=== PATIENT | female | born 1950 | race Caucasian/White ===

== ENCOUNTER 2018-04-22 08:28 | Outpatient (CLI) | payer MEDICARE ==
--- NOTE | 2018-04-22 13:23 | CT ---
CT ABDOMEN AND PELVIS WITH IV CONTRAST: INDICATIONS: History of mid abdominal pain for five weeks with a history of a routine colonoscopy two weeks ago. The patient reportedly had mucus coming from the appendix. FINDINGS: The visualized appendix appears within normal limits, measuring approximately 5.7 mm in its greatest diameter. No lymphadenopathy is evident. There is an enlarging right lower lobe pulmonary nodule, now measuring 8 mm, where it previously nilda ured [address], dated 03/30/2016. There is a small hiatal hernia. There is fatty infiltration of the liver. The gallbladder is surgically absent. The spleen, pancreas, and adrenal glands are normal appearing. There is very slight prominence of the right renal calyceal system, with a normal appearing right u reter, which may reflect a mild UPJ obstruction. 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 No definite obstruction process is seen involving the renal collecting system. T he visualized bladder is unremarkable. No pathologically enlarged lymph nodes are evident. There ar e mild vascular calcifications involving the abdominal aorta. There is scattered degenerative and osteoarthritic change. There is diffuse osteopenia. IMPRESSION: 1. The appendix is normal appearing by CT. No definite mass or lymphadenopathy is seen within the r ight lower quadrant of the abdomen. 2. Enlarging right lower lobe pulmonary nodule, now measuring up to [address] thorax with intravenous contrast is recommended to evaluate for additional pulmonary nodules. 3. Small hiatal hernia. 4. Fatty liver. 5. 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 6. Other chronic findings as above. CODE LN CODE T POS: MICHELLE
== END 2018-04-22 08:29 | disposition home or self-care (01) ==
LOC: SCSCT 08:28
PROVIDERS: ATTEND Internal Medicine Gastroenterology
DX: K35.80 Unspecified acute appendicitis (principal); R91.1 Solitary pulmonary nodule; K44.9 Diaphragmatic hernia without obstruction or gangrene; K76.0 Fatty (change of) liver, not elsewhere classified; I70.0 Atherosclerosis of aorta; M19.90 Unspecified osteoarthritis, unspecified site; M85.80 Other specified disorders of bone density and structure, unspecified site; Z90.49 Acquired absence of other specified parts of digestive tract
CPT/HCPCS: 74177; 82565

== ENCOUNTER 2018-12-26 08:52 | Outpatient (CLI) | payer MEDICARE ==
[2018-12-26] MEDS ORDERED: Iopamidol 300 61% 100 ML VIAL FS ONE (09:00)
--- NOTE | 2018-12-26 10:12 | CT ---
CT CHEST WITH CONTRAST: Date: 12/26/2018 HISTORY: Pulmonary nodule noted on prior abdominal CT within the right lower lobe. TECHNIQUE: Axial CT imaging obtained at 5 mm intervals from the thoracic inlet through the upper abdo men with IV contrast. Coronal reformatted imaging obtained. FINDINGS: There is deformity of the left breast with extensive calcifications. Question prior surgery. No lymphadenopathy is seen. Upper abdomen demonstrates cholecystectomy clips. No pleural, pericardial, or mediastinal fluid. No pneumothorax. Linear calcification noted within left upper lobe on axial image 16. No discrete pulmonary parenchyma l mass lesion or nodule noted within the left upper or left lower lobe. There is a spiculated mass measuring 1.4 cm within the medial aspect of the right upper lobe, best se en on axial image 23 and coronal image 42. There is a tiny nodule in the inferior aspect of the right middle lobe measuring 3 mm on axial image 40. The nodule noted on prior imaging within the right lower lobe is again seen. It measures approximatel y 9 mm. It has irregular margins and is a nonspecific lesion. Review of the osseous structures demonstrates no worrisome lytic or blastic lesions. IMPRESSION: 1. 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 2. Nonspecific right lower lobe pulmonary nodule as detailed above. Recommend PET/CT for further assessment. CODE T Transcribed Date/Time: 12/26/2018 10:18 AM
== END 2018-12-26 08:53 | disposition home or self-care (01) ==
LOC: SCSCT 08:52
PROVIDERS: ATTEND Internal Medicine
DX: R91.1 Solitary pulmonary nodule (principal); R91.8 Other nonspecific abnormal finding of lung field
CPT/HCPCS: 71260; 82565; Q9967

== ENCOUNTER 2019-01-08 08:50 | Outpatient (CLI) | payer MEDICARE ==
--- NOTE | 2019-01-08 11:10 | PET ---
Nuclear medicine FDG PET/CT: (Positron emission tomography and computed tomography) DATE: 01/08/2019 HISTORY: 68-year-old female with solitary pulmonary nodule. COMPARISON: no prior PET TECHNIQUE: IV injection of F-18 fluorodeoxyglucose (FDG) dose: 10.3 mCi. PET scan and attenuation correction CT performed from skull base to proximal thighs. FINDINGS: SUV (standard uptake values) numbers given are maximum SUVs. QCLR used. The 14 mm spiculated nodule in the anterior segment of the right upper lobe described on the recent c hest CT report is not FDG-avid (SUV 2.2). The 9 mm pulmonary nodule at the medial base of the right lower lobe is also not FDG-avid (SUV 0.9). The approximately 1 mm nodule at the right middle lobe is too small for PET. No abnormally FDG-avid lesions are identified anywhere in the neck, chest, abdomen, pelvis, or skelet on. IMPRESSION: 1) negative PET scan. 2) the spiculated 14 mm right upper lobe pulmonary nodule is not FDG-avid. 3) recommend serial follow-up chest CTs, beginning in 4 months.
== END 2019-01-08 08:51 | disposition home or self-care (01) ==
LOC: PET 08:50
PROVIDERS: ATTEND Internal Medicine
DX: R91.1 Solitary pulmonary nodule (principal)
CPT/HCPCS: 78815; A9552

== ENCOUNTER 2019-07-16 09:46 | Outpatient (CLI) | payer MEDICARE ==
--- NOTE | 2019-07-16 11:32 | CT ---
CT CHEST PERFORMED WITH CONTRAST ENHANCEMENT: Date: 07/16/2019 HISTORY: Follow-up pulmonary nodules. History of left breast cancer and lumpectomy, and chemotherapy and radia tion. COMPARISON: 12/26/2018 study. FINDINGS: The lungs are clear of any infiltrative process. Area of calcification in the left upper lobe is stab le in appearance. Spiculated mass in the anterior segment of the right upper lobe in a paramediastinal location is agai n demonstrated, it measures 1.5 cm in AP dimension, not felt to be a significant change since the paulino or study. In addition, there is a small right lower lobe pulmonary nodule, axial image 47 that measur es in the 3-4 mm range, also stable. Tiny area of nodularity axial image 73 in the right middle lobe is also unchanged. The right lower lobe pulmonary nodule axial image 70 measures 8-9 mm, also not sig nificantly different than the prior exam. No significant mediastinal or hilar adenopathy. Postoperative changes of the left breast are seen. The visualized liver parenchyma shows no focal findings. Right and left adrenal glands are normal in size. IMPRESSION: Essentially stable appearance to the pulmonary nodules. Questionable subtle increase in size to the s piculated lesion which may be a millimeter or so increased in size, but the change could just be rela jose juan to slight differences in position. No new nodules identified. POS: TPC
[2019-07-16] MEDS ORDERED: Iopamidol-370 76% 500 ML 1 ML ONE (14:41)
== END 2019-07-16 09:47 | disposition home or self-care (01) ==
LOC: BICCT 09:46
PROVIDERS: ATTEND Internal Medicine
DX: R91.8 Other nonspecific abnormal finding of lung field (principal)
CPT/HCPCS: 71260; 82565; Q9967

== ENCOUNTER 2020-03-22 09:33 | Outpatient (CLI) | payer MEDICARE ==
--- NOTE | 2020-03-22 12:08 | CT ---
CT OF THE THORAX WITHOUT IV CONTRAST: Date: 03/22/2020 INDICATION: Follow-up pulmonary nodule. COMPARISON: Prior CT of the thorax dated 12/26/2018 and 06/28/2019. FINDINGS: The spiculated pulmonary nodule with surrounding subsegmental atelectasis is slightly larger, now arlen suring 17.9 x 12.6 x 13.1 mm, where on the most previous examination, the pulmonary nodule measured 1 5.2 x 12.6 x 13 mm. The right lower lobe pulmonary nodule seen on image 70 of series 2 is stable measuring 1.3 x 0.8 cm. A small sub-4.0 mm pulmonary nodule within the right lower lobe on image 47 of series 2 is stable ap pearing. Calcification of the left upper lobe is stable. No new pulmonary nodule is evident. No lymphadenopathy is evident. High density material is seen within the ducts of the left breast poss ibly related to prior ductography is stable appearing. Small hiatal hernia. Gallbladder is surgically absent. Adrenal glands are normal appearing. No suspic ious osteolytic or osteoblastic lesion identified. There is scattered degenerative and osteoarthritic change. IMPRESSION: 1. Enlarging spiculated pulmonary nodule of the right upper lobe suspicious for slow-growing maligna ncy. 2. Stable right lower lobe pulmonary nodules. POS: BH
== END 2020-03-22 09:34 | disposition home or self-care (01) ==
LOC: BICCT 09:33
PROVIDERS: ATTEND Internal Medicine
DX: R91.8 Other nonspecific abnormal finding of lung field (principal)
CPT/HCPCS: 71250

== ENCOUNTER 2020-10-18 08:10 | Outpatient (CLI) | payer MEDICARE | END 2020-10-18 08:11 | disposition home or self-care (01) | LOC: CT 08:10 | PROVIDERS: ATTEND Internal Medicine Critical Care Medicine | DX: R91.8 Other nonspecific abnormal finding of lung field (principal) | CPT/HCPCS: 71250 ==

== ENCOUNTER 2021-12-06 10:18 | Outpatient (CLI) | payer MEDICARE | END 2021-12-06 10:19 | disposition home or self-care (01) | LOC: CT 10:18 | PROVIDERS: ATTEND Internal Medicine Critical Care Medicine | DX: R91.8 Other nonspecific abnormal finding of lung field (principal); R92.0 Mammographic microcalcification found on diagnostic imaging of breast | CPT/HCPCS: 71250 ==

== ENCOUNTER 2022-01-05 11:00 | Outpatient (CLI) | payer MEDICARE | END 2022-01-05 11:01 | disposition home or self-care (01) | LOC: PET 11:00 | PROVIDERS: ATTEND Internal Medicine Critical Care Medicine | DX: R91.1 Solitary pulmonary nodule (principal) | CPT/HCPCS: 78815; A9552 ==

== ENCOUNTER 2022-02-23 11:30 | Inpatient (IN) | payer MEDICARE ==
[2022-02-23 11:32] LABS: Hemoglobin 15.5 g/dL (12.0-15.5); Mean Corpuscular HGB CONC 33.5 g/dL (32.0-36.0); Mean Corpuscular Hemoglobin 31.1 pg (27.0-33.0); Mean Corpuscular Volume 92.8 fl (81.6-98.3); Mean Platelet Volume 9.3 fl (7.4-10.4); Platelet Count 227 10x3/uL (150-450); Red Blood Cell (RBC) Count 4.99 10x6/uL (3.90-5.03); White Blood Cell (WBC) Count 5.7 10x3/uL (3.5-10.5)
[2022-02-23 11:44] LABS: Anion Gap 15 mmol/L (10-20); BUN (Urea Nitrogen) 10 mg/dL (9.8-20.1); Calc. Creatinine Clearance 0 mL/min (70-130); Calcium 9.6 mg/dL (7.8-10.44); Carbon Dioxide 28 mmol/L (23-31); Chloride 102 mmol/L (98-107); Estimated GFR 87; Glucose 101 mg/dL (80-115); Potassium 3.9 mmol/L (3.5-5.1); Sodium 141 mmol/L (136-145)
[2022-02-26] MEDS ORDERED: Midazolam HCl 2 mg/2 ml Vial ONE ×2 (06:17→07:18)
[2022-02-26] MEDS ORDERED: fentaNYL Citrate/PF 100 MCG/2 ML SYRINGE ONE (06:18)
[2022-02-26] MEDS ORDERED: Norepinephrine 4 MG/4 ML VIAL ONE (06:19)
[2022-02-26] MEDS ORDERED: Bupivacaine PF 0.5% 30 ML VIAL ONE (06:36)
[2022-02-26] MEDS ORDERED: EPINEPHrine 1 MG/ML AMP ONE (06:36)
[2022-02-26] MEDS ORDERED: Dexamethasone 4 mg/ml Vial ONE (06:36)
[2022-02-26] MEDS ORDERED: SUGAMMADEX SODIUM 200 MG/2 ML VIAL ONE (06:37)
[2022-02-26] MEDS ORDERED: CEFAZOLIN 2 GM VIAL ONE (06:40)
[2022-02-26] MEDS ORDERED: Sodium Chloride 0.9% 0 ML ONE (06:40)
[2022-02-26] MEDS ORDERED: Bupivacaine/Epinephrine 0.25% 30 ML VIAL ONE (07:07)
[2022-02-26] MEDS ORDERED: Lidocaine 1% MPF 2 ML VIAL ONE ×2 (07:53)
[2022-02-26] MEDS ORDERED: Lidocaine 1.5% w/Epi 1:200K 30 ML VIAL (Epid Use) ONE (07:53)
[2022-02-26] MEDS ORDERED: PROPOFOL 200 MG/20 ML VIAL ONE (07:53)
[2022-02-26] MEDS ORDERED: Rocuronium Bromide 10 MG/ML (10ML VIAL) ONE (07:53)
[2022-02-26] MEDS ORDERED: Ondansetron PF 4 MG/2 ML Vial ONE (07:53)
[2022-02-26] MEDS ORDERED: Dexamethasone 20 MG/5 ML VIAL ONE (07:53)
[2022-02-26] MEDS ORDERED: Lidocaine 2% PF 5 ML VIAL ONE (09:04)
[2022-02-26] MEDS ORDERED: Acetaminophen 500 MG TAB PO PRN (10:56)
[2022-02-26] MEDS ORDERED: diphenhydrAMINE 50 MG/ML VIAL IM PRN (11:00)
[2022-02-26] MEDS ORDERED: Naloxone HCl 0.4 mg/ml Vial IV PRN (11:00)
[2022-02-26] MEDS ORDERED: Bupivacaine 0.25% 10 ML VIAL EPIDURAL PRN (11:00)
[2022-02-26] MEDS ORDERED: Moisturizing Cream (Eucerin) 113 GM JAR TOP PRN (11:00)
[2022-02-26] MEDS ORDERED: Promethazine HCl 25 MG/ML VIAL IM PRN (11:00)
[2022-02-26] MEDS ORDERED: diphenhydrAMINE 50 MG/ML VIAL IVP PRN (11:00)
[2022-02-26] MEDS ORDERED: Naloxone HCl 0.4 mg/ml Vial IVP PRN (11:00)
[2022-02-26] MEDS ORDERED: traMADol HCl 50 MG TAB PO PRN (11:00)
[2022-02-26] MEDS ORDERED: Promethazine HCl 25 MG SUPP PR PRN (11:00)
[2022-02-26] MEDS ORDERED: Zolpidem Tartrate 5 MG TAB PO PRN (11:00)
[2022-02-26] MEDS ORDERED: niCARdipine 25 MG in Sodium Chloride 0.9% 250 ML 250 ML IVPB PRN (12:00)
[2022-02-26] MEDS ORDERED: Ondansetron PF 4 MG/2 ML Vial IVP PRN (12:00)
[2022-02-26] MEDS ORDERED: Phenylephrine 40 MG in Sodium Chloride 0.9% 250 ML 250 ML IVPB PRN (12:00)
[2022-02-26] MEDS ORDERED: Fentanyl 100 MCG/2 ML VIAL ONE (12:08)
[2022-02-26] MEDS ORDERED: HYDROmorphone 0.5 MG/0.5 ML SYRINGE ONE ×2 (12:36→12:49)
[2022-02-26 13:28] VITALS: BMI 25.6
[2022-02-26] MEDS: HYDROcodone/Acetaminophen 5/325 mg Tablet PO PRN ×2 (13:43→19:22)
[2022-02-26] MEDS: Ketorolac Tromethamine 30 MG/ML VIAL IVP SCH ×2 (13:43→18:07)
[2022-02-26] MEDS: Lactated Ringer's 1,000 ML IV SCH (14:22)
[2022-02-26] MEDS: CEFAZOLIN 2 GM in Sodium Chloride 0.9% 100 ML IVPB SCH ×2 (14:24→22:50)
[2022-02-27] MEDS: Ketorolac Tromethamine 30 MG/ML VIAL IVP SCH ×5 (00:05→23:18)
[2022-02-27] MEDS: BUPIVACAINE 0.5% EPIDURAL SCH ×2 (02:22→16:49)
[2022-02-27] MEDS: FENTANYL CITRATE EPIDURAL SCH ×2 (02:22→16:49)
[2022-02-27] MEDS: SODIUM CHLORIDE 0.9% EPIDURAL SCH ×2 (02:22→16:49)
[2022-02-27 03:55] LABS: #Lymphocytes 1.3 thou/uL (1.20-3.40); #Monocytes 0.8 thou/uL (0.11-0.59); #Neutrophils 8.1 thou/uL (1.40-6.50); %Basophils 0.2 % (0.0-1.0); %Eosinophils 0.1 % (0.0-10.0); %Lymphocytes 12.8 % (21.0-51.0); %Monocytes 8.1 % (0.0-10.0); %Neutrophils 78.9 % (42.0-75.0); Hemoglobin 12.8 g/dL (12.0-16.0); Mean Corpuscular HGB CONC 32.8 g/dL (32.0-36.0); Mean Corpuscular Hemoglobin 31.9 pg (27.0-31.0); Mean Corpuscular Volume 97.5 fL (78.0-98.0); Mean Platelet Volume 7.1 fL (7.4-10.4); Platelet Count 162 thou/uL (130-400); RBC Distribution Width 12.2 % (11.5-14.5); White Blood Cell (WBC) Count 10.3 thou/uL (4.8-10.8)
[2022-02-27] MEDS: Lactated Ringer's 1,000 ML IV SCH ×2 (04:06→14:44)
[2022-02-27 04:18] LABS: Anion Gap 8 mmol/L (10-20); BUN (Urea Nitrogen) 10 mg/dL (9.8-20.1); Calc. Creatinine Clearance 83 mL/min (70-130); Calcium 7.8 mg/dL (7.8-10.44); Carbon Dioxide 24 mmol/L (23-31); Chloride 107 mmol/L (98-107); Estimated GFR 95; Glucose 98 mg/dL (80-115); Potassium 3.2 mmol/L (3.5-5.1); Sodium 136 mmol/L (136-145)
[2022-02-27] MEDS: CEFAZOLIN 2 GM in Sodium Chloride 0.9% 100 ML IVPB SCH (06:06)
[2022-02-27] MEDS ORDERED: Enoxaparin Sodium 40 MG/0.4 ML SYRINGE SC SCH (09:00)
[2022-02-27] MEDS: diphenhydrAMINE 25 MG CAP PO PRN ×2 (11:21→19:55)
[2022-02-27] MEDS: HYDROcodone/Acetaminophen 5/325 mg Tablet PO PRN ×2 (14:43→23:17)
[2022-02-27] MEDS ORDERED: Polyethylene Glycol 3350 17 GM Packet PO SCH (15:30)
[2022-02-28] MEDS: Ketorolac Tromethamine 30 MG/ML VIAL IVP SCH (06:09)
[2022-02-28] MEDS: BUPIVACAINE 0.5% EPIDURAL SCH ×2 (06:14→20:25)
[2022-02-28] MEDS: SODIUM CHLORIDE 0.9% EPIDURAL SCH ×2 (06:14→20:25)
[2022-02-28] MEDS: FENTANYL CITRATE EPIDURAL SCH ×2 (06:14→20:25)
[2022-02-28] MEDS: diphenhydrAMINE 25 MG CAP PO PRN ×3 (06:47→20:24)
[2022-02-28] MEDS: Polyethylene Glycol 3350 17 GM Packet PO SCH (08:39)
[2022-02-28] MEDS: HYDROcodone/Acetaminophen 5/325 mg Tablet PO PRN ×3 (08:40→20:24)
[2022-02-28] MEDS: Enoxaparin Sodium 40 MG/0.4 ML SYRINGE SC SCH (20:23)
[2022-03-01] MEDS: HYDROcodone/Acetaminophen 5/325 mg Tablet PO PRN ×3 (04:56→18:50)
[2022-03-01] MEDS: diphenhydrAMINE 25 MG CAP PO PRN ×3 (04:57→13:12)
[2022-03-01] MEDS: Polyethylene Glycol 3350 17 GM Packet PO SCH (10:08)
[2022-03-01] MEDS: Potassium Chloride 10 MEQ TAB PO SCH ×2 (10:10→18:49)
[2022-03-01] MEDS: BUPIVACAINE 0.5% EPIDURAL SCH (12:50)
[2022-03-01] MEDS: FENTANYL CITRATE EPIDURAL SCH (12:50)
[2022-03-01] MEDS: SODIUM CHLORIDE 0.9% EPIDURAL SCH (12:50)
[2022-03-01] MEDS: Enoxaparin Sodium 40 MG/0.4 ML SYRINGE SC SCH (20:43)
[2022-03-02] MEDS: traMADol HCl 50 MG TAB PO PRN (03:32)
[2022-03-02] MEDS: FENTANYL CITRATE EPIDURAL SCH ×2 (04:16→17:49)
[2022-03-02] MEDS: BUPIVACAINE 0.5% EPIDURAL SCH ×2 (04:16→17:49)
[2022-03-02] MEDS: SODIUM CHLORIDE 0.9% EPIDURAL SCH ×2 (04:16→17:49)
[2022-03-02] MEDS ORDERED: Bisacodyl 5 MG TAB PO PRN (08:51)
[2022-03-02] MEDS ORDERED: Bisacodyl 10 MG SUPP PR PRN (08:51)
[2022-03-02] MEDS ORDERED: Magnesium Citrate 300 ML BOT PO SCH (09:00)
[2022-03-02] MEDS: Potassium Chloride 10 MEQ TAB PO SCH ×2 (09:28→17:49)
[2022-03-02] MEDS: Polyethylene Glycol 3350 17 GM Packet PO SCH (09:28)
[2022-03-02] MEDS: Enoxaparin Sodium 40 MG/0.4 ML SYRINGE SC SCH (20:51)
[2022-03-03] MEDS: BUPIVACAINE 0.5% EPIDURAL SCH ×2 (05:39→18:29)
[2022-03-03] MEDS: FENTANYL CITRATE EPIDURAL SCH ×2 (05:39→18:29)
[2022-03-03] MEDS: SODIUM CHLORIDE 0.9% EPIDURAL SCH ×2 (05:39→18:29)
[2022-03-03] MEDS ORDERED: Milk Of Magnesia 30 ML UDCUP PO PRN (07:15)
[2022-03-03] MEDS ORDERED: Potassium Chloride 20 MEQ TAB PO SCH (07:30)
[2022-03-03] MEDS: Potassium Chloride 10 MEQ TAB PO SCH ×2 (08:41→18:29)
[2022-03-03] MEDS: Furosemide 40 MG TAB PO SCH (08:41)
[2022-03-03] MEDS: Polyethylene Glycol 3350 17 GM Packet PO SCH (08:42)
[2022-03-03] MEDS: traMADol HCl 50 MG TAB PO PRN (13:42)
[2022-03-03] MEDS: Enoxaparin Sodium 40 MG/0.4 ML SYRINGE SC SCH (20:30)
[2022-03-04] MEDS: Furosemide 40 MG TAB PO SCH (06:30)
[2022-03-04 07:57] LABS: Anion Gap 7 mmol/L (10-20); BUN (Urea Nitrogen) 8 mg/dL (9.8-20.1); Calc. Creatinine Clearance 83 mL/min (70-130); Calcium 8.7 mg/dL (7.8-10.44); Carbon Dioxide 32 mmol/L (23-31); Chloride 101 mmol/L (98-107); Estimated GFR 95; Glucose 96 mg/dL (80-115); Potassium 4.3 mmol/L (3.5-5.1); Sodium 136 mmol/L (136-145)
[2022-03-04] MEDS: Polyethylene Glycol 3350 17 GM Packet PO SCH (08:33)
[2022-03-04] MEDS: traMADol HCl 50 MG TAB PO PRN ×2 (08:34→18:02)
[2022-03-04] MEDS: fentaNYL Citrate/PF 500 MCG, Bupivacaine 0.75% 10 ML in Sodium Chloride 0.9% 80 ML EPIDURAL SCH ×2 (08:34→21:26)
[2022-03-04] MEDS: Potassium Chloride 10 MEQ TAB PO SCH ×2 (08:34→18:01)
[2022-03-04] MEDS: Ondansetron PF 4 MG/2 ML Vial IVP PRN (09:58)
[2022-03-04] MEDS: Enoxaparin Sodium 40 MG/0.4 ML SYRINGE SC SCH (20:51)
[2022-03-05] MEDS: Furosemide 40 MG TAB PO SCH (06:32)
[2022-03-05] MEDS: Potassium Chloride 10 MEQ TAB PO SCH ×2 (07:59→16:12)
[2022-03-05] MEDS: Polyethylene Glycol 3350 17 GM Packet PO SCH (07:59)
[2022-03-05] MEDS ORDERED: Fentanyl 100 MCG/2 ML VIAL SLOW IVP PRN (10:11)
[2022-03-05] MEDS: traMADol HCl 50 MG TAB PO PRN (11:57)
[2022-03-05] MEDS: HYDROcodone/Acetaminophen 5/325 mg Tablet PO PRN ×2 (16:13→20:34)
[2022-03-05] MEDS: Enoxaparin Sodium 40 MG/0.4 ML SYRINGE SC SCH (20:32)
[2022-03-06] MEDS: HYDROcodone/Acetaminophen 5/325 mg Tablet PO PRN ×6 (01:49→23:15)
[2022-03-06] MEDS: Furosemide 40 MG TAB PO SCH (06:34)
[2022-03-06] MEDS: Ondansetron PF 4 MG/2 ML Vial IVP PRN ×2 (07:41→14:34)
[2022-03-06] MEDS: Potassium Chloride 10 MEQ TAB PO SCH (07:43)
[2022-03-06] MEDS: Polyethylene Glycol 3350 17 GM Packet PO SCH (07:43)
[2022-03-06] MEDS: Enoxaparin Sodium 40 MG/0.4 ML SYRINGE SC SCH (20:07)
[2022-03-07] MEDS: HYDROcodone/Acetaminophen 5/325 mg Tablet PO PRN ×5 (03:44→22:35)
[2022-03-07 05:47] LABS: #Eosinphils 0.1 thou/uL (0.0-0.7); #Monocytes 0.6 thou/uL (0.11-0.59); #Neutrophils 4.9 thou/uL (1.40-6.50); %Basophils 0.1 % (0.0-1.0); %Eosinophils 1.5 % (0.0-10.0); %Monocytes 8.7 % (0.0-10.0); %Neutrophils 74.6 % (42.0-75.0); Hemoglobin 13.2 g/dL (12.0-16.0); Mean Corpuscular HGB CONC 31.9 g/dL (32.0-36.0); Mean Corpuscular Hemoglobin 31.2 pg (27.0-31.0); Mean Corpuscular Volume 97.8 fL (78.0-98.0); Mean Platelet Volume 6.1 fL (7.4-10.4); Platelet Count 296 thou/uL (130-400); RBC Distribution Width 12.2 % (11.5-14.5); Red Blood Cell (RBC) Count 4.23 mill/uL (4.20-5.40); White Blood Cell (WBC) Count 6.6 thou/uL (4.8-10.8)
[2022-03-07 06:01] LABS: Anion Gap 12 mmol/L (10-20); BUN (Urea Nitrogen) 6 mg/dL (9.8-20.1); Calc. Creatinine Clearance 84 mL/min (70-130); Calcium 8.9 mg/dL (7.8-10.44); Carbon Dioxide 28 mmol/L (23-31); Chloride 101 mmol/L (98-107); Estimated GFR 95; Glucose 113 mg/dL (80-115); Potassium 3.9 mmol/L (3.5-5.1); Sodium 137 mmol/L (136-145)
[2022-03-07] MEDS: Furosemide 40 MG TAB PO SCH (06:21)
[2022-03-07] MEDS: Ondansetron PF 4 MG/2 ML Vial IVP PRN (06:46)
[2022-03-07] MEDS: Polyethylene Glycol 3350 17 GM Packet PO SCH ×2 (08:18→08:19)
[2022-03-07] MEDS: Enoxaparin Sodium 40 MG/0.4 ML SYRINGE SC SCH (19:40)
[2022-03-08] MEDS: HYDROcodone/Acetaminophen 5/325 mg Tablet PO PRN ×5 (02:30→18:14)
[2022-03-08] MEDS: Furosemide 40 MG TAB PO SCH (06:16)
[2022-03-08] MEDS: Polyethylene Glycol 3350 17 GM Packet PO SCH (07:50)
[2022-03-08 16:56] VITALS: BP 137/81; TEMP 98.3
== END 2022-03-08 18:35 | disposition home or self-care (01) | DRG 164 ==
LOC: SURG A 02-26 05:40 → CCU 02-26 13:34 → SURG B 02-27 16:59
PROVIDERS: ADMIT Thoracic Surgery (Cardiothoracic Vascular Surgery); ATTEND Thoracic Surgery (Cardiothoracic Vascular Surgery)
PROC: 0BBC0ZZ Excision of Right Upper Lung Lobe, Open Approach (ICD-10-PCS; principal; 2022-02-26)
PROC: 07B70ZZ Excision of Thorax Lymphatic, Open Approach (ICD-10-PCS; 2022-02-26)
DX: C78.01 Secondary malignant neoplasm of right lung (principal); J93.82 Other air leak; J98.11 Atelectasis; Z20.822 Contact with and (suspected) exposure to COVID-19; I10 Essential (primary) hypertension; K21.9 Gastro-esophageal reflux disease without esophagitis; D49.89 Neoplasm of unspecified behavior of other specified sites; C50.919 Malignant neoplasm of unspecified site of unspecified female breast; K59.00 Constipation, unspecified; Z90.49 Acquired absence of other specified parts of digestive tract; Z98.890 Other specified postprocedural states; Z79.899 Other long term (current) drug therapy; Z79.82 Long term (current) use of aspirin
CPT/HCPCS: 36415; 71045; 80048; 85025; 85027; 86850; 86900; 86901; 87811; 88305; 88307; 88331; 88342; 88361; 93005; 93010; 94640; A4649; C1776; J0171; J0690; J1100; J1170; J1650; J1885; J2001; J2250; J2405; J2704; J3010; J3490; J7120; J7620; S0020

== ENCOUNTER 2022-03-13 13:15 | Outpatient (CLI) | payer MEDICARE | END 2022-03-13 13:16 | disposition home or self-care (01) | LOC: BICRAD 13:15 | PROVIDERS: ATTEND Thoracic Surgery (Cardiothoracic Vascular Surgery) | DX: C34.11 Malignant neoplasm of upper lobe, right bronchus or lung (principal) | CPT/HCPCS: 71046 ==